=== PATIENT | male | born 1960 ===

== ENCOUNTER 2017-08-13 11:51 | Emergency (ER) | payer MEDICAID, OTHER ==
[2017-08-13 12:08] VITALS: BMI 24.0
[2017-08-13 12:12] VITALS: BP 124/75; PULSE 78; RESP 18; TEMP 98; O2SAT 98
--- NOTE | 2017-08-13 12:32 | C.PDOC ---
History Of Present Illness 57 yr old male presents to the ER with complaints of right thumb/hand pain for the past 3 weeks. Patient states the pain is localized with right thumb movement , with local swelling. Patient denies fever, shoulder pain, neck pain, weakness or numbness. R THUMB/HAND PAIN X 3 WEEKS. NO TRAUMA. LOCALIZED WORSE W R THUMB MOVEMENT. NO ASSOC WEAK/ NUMB. +LOCAL SWELL EXAM NAD EXT R HAND +MILD SWELL OVER R THUMB EXTENSOR TENDON AREA. +REPRODUC PAIN W THUMB EXTENSION. NO DEFORM SKIN INTACT NO LESIONS REMAINDER NEG MDM SPLINT, REFER HAND Time Seen by Provider: 08/13/17 12:10 Chief Complaint (Nursing): Finger,Hand,&Wrist History Per: Patient Onset/Duration Of Symptoms: Days (3 weeks) Current Symptoms Are (Timing): Still Present Past Medical History Reviewed: Historical Data, Nursing Documentation, Vital Signs Vital Signs: Last Vital Signs Temp 98 F 08/13/17 12:09 Pulse 78 08/13/17 12:09 Resp 18 08/13/17 12:09 BP 124/75 08/13/17 12:09 Pulse Ox 98 08/13/17 12:32 Family History: States: No Known Family Hx - Social History Hx Alcohol Use: No Hx Substance Use: No - Immunization History Hx Tetanus Toxoid Vaccination: No Hx Influenza Vaccination: No Hx Pneumococcal Vaccination: No Review Of Systems Except As Marked, All Systems Reviewed And Found Negative. Constitutional: Negative for: Fever Musculoskeletal: Positive for: Other ((+) Right thumb/hand pain with local swelling). Negative for: Neck Pain, Shoulder Pain Neurological: Negative for: Weakness, Numbness Physical Exam - Physical Exam Appears: Non-toxic, No Acute Distress Skin: Warm, Dry, No Rash Head: Atraumatic, Normacephalic Oral Mucosa: Moist Cardiovascular: Rhythm Regular Extremity: Normal ROM, Capillary Refill (<2 secs), No Deformity, Other (Right Hand - Mild swelling over the thumb extensor tendon area. Reproducible pain with thumb extension. Skin intact, no lesions.) Neurological/Psych: Oriented x3, Normal Speech, Normal Motor ED Course And Treatment O2 Sat by Pulse Oximetry: 98 (RA) Pulse Ox Interpretation: Normal Medical Decision Making Medical Decision Making: NOTE: Splint applied. Referral for hand specialist given. Disposition Counseled Patient/Family Regarding: Diagnosis, Need For Followup, Rx Given - Disposition Referrals: Clinic,Med Surg [Primary Care Provider] - Disposition: HOME/ ROUTINE Disposition Time: 12:31 Condition: IMPROVED Prescriptions: Ibuprofen [Motrin] 600 mg PO Q6 #30 tab Instructions: Tendinitis (ED) Forms: [facility] (Ukrainian) - Clinical Impression Clinical Impression: Thumb tendonitis - Scribe Statement The provider has reviewed the documentation as recorded by the Oliviaibe Diya Braahona Provider Attestation: All medical record entries made by the Oliviaibrogelio were at my direction and personally dictated by me. I have reviewed the chart and agree that the record accurately reflects my personal performance of the history, physical exam, medical decision making, and the department course for this patient. I have also personally directed, reviewed, and agree with the discharge instructions and disposition. Orthopedic Care Application Of:: Thumb Spica Splint
== END 2017-08-13 12:45 | disposition home or self-care (01) ==
LOC: C.ER 11:51 → SUPCPDRO 11:51 → C.ER 12:45
DX: M77.9 Enthesopathy, unspecified (principal)